=== PATIENT | female | born 1990 | race Asian ===

== ENCOUNTER 2017-11-25 10:05 | Emergency (ER) | payer OTHER ==
[~2017-11-25] VITALS: Ht 172.7 cm; Wt 59.0 kg
[2017-11-25 11:09] LABS: PLATELET COUNT 251 K/uL (152-353)
[2017-11-25 11:43] LABS: POTASSIUM 4.2 mmol/L (3.6-5.2)
[2017-11-25 16:00] VITALS: BP 92/60; TEMP 99.1
== END 2017-11-25 16:00 | disposition home or self-care (01) ==
LOC: ED 10:05
PROVIDERS: Family Medicine
DX: N12 Tubulo-interstitial nephritis, not specified as acute or chronic (principal); R10.31 Right lower quadrant pain
CPT/HCPCS: 36415; 80053; 81000; 81025; 85027; 87077; 87086; 87088; 87186; 96365; 99284; J1885; Q9963